=== PATIENT | female | born 1970 | race Caucasian/White ===

== ENCOUNTER 2018-10-18 06:38 | Day surgery (SDC) | payer OTHER ==
[2018-10-18 07:38] VITALS: BMI 32.8
--- NOTE | 2018-10-18 09:20 | RAD ---
Exam: Lumbar myelogram HISTORY: Lumbar fusion. Lumbar radiculopathy. Low back pain Exposure: 1.3 minutes; 1284.9 mcg/sq m FINDINGS: 2 view lumbar spine manager critical care radiograph demonstrates bilateral transpedicular screws from L2 t hrough S1. No perihardware lucency. There is discontinuity of the vertical stabilization rods at the L3-L4 level. Disc prosthesis at L2-L3, L3-L4, L4-L5 and L5-S1. Posterior bone graft material is n oted. No evidence of fracture TECHNIQUE: Consent obtained to perform a lumbar puncture for lumbar myelogram. L1-L2 level was deemed appropriate. Skin was prepped and draped in sterile fashion. 1% lidocaine, buffered with sodium bicarbonate was used for local anesthesia. Under fluoroscopic guidance, a 22-gauge spinal needle was advanced into the CSF space. Prompt flow of clear CSF to the hub of the needle. Via a short tubing catheter, a total of 10 cc of Isovue-M 200 contrast was administered intrathecally. No immediate or p ostprocedure complications IMPRESSION: Successful lumbar myelogram.
--- NOTE | 2018-10-18 09:49 | CT ---
Exam: Post myelogram lumbar spine CT HISTORY: Lumbar radiculopathy. Low back pain. COMPARISON: None FINDINGS: The bilateral transpedicular screws from L2 through S1. No perihardware lucency. Discontinu ity of the vertical stabilization johnathan at the L2-L3 level, bilaterally. Extensive posterior bone graft material. Disc prosthesis at L2-L3, L3-L4, L4-L5 and L5-S1. Paraspinal musculature has symmetric attenuation. No retroperitoneal mass, lymphadenopathy or hematom a. Visualized alimentary canal and solid organs are unremarkable Conus medullaris terminates at the mid L1 level. Lumbar spine vertebral body height is maintained. Th ere is no fracture. T12-L1: No significant central canal stenosis or neural foraminal narrowing L1-L2: No significant central canal stenosis or neural foraminal narrowing L2-L3: No significant central canal stenosis. Neural foramina are patent L3-L4: No significant central canal stenosis. Neural foramina are patent L4-L5: No significant central canal stenosis. Mild bilateral neural foraminal narrowing L5-S1: No significant central canal stenosis. Mild bilateral neural foraminal narrowing. IMPRESSION: 1. Uncomplicated lumbar fusion L2-S1. No perihardware lucency. 2. Discontinuity of the vertical fusion hardware at the L2-L3 level, bilaterally. Findings may be due to 2 separate surgeries versus fracture of the vertical stabilization rods. Correlate clinically. 3. No significant central canal stenosis or high-grade foraminal narrowing.
[2018-10-18] MEDS ORDERED: Iopamidol-M 200 41% 20 ML VIAL ONE (10:53)
== END 2018-10-18 10:00 | disposition home or self-care (01) ==
LOC: RAD 06:38
PROVIDERS: ATTEND Neurological Surgery
PROC: B01B1ZZ Fluoroscopy of Spinal Cord using Low Osmolar Contrast (ICD-10-PCS; principal; 2018-10-18)
DX: M54.16 Radiculopathy, lumbar region (principal); I10 Essential (primary) hypertension; F32.9 Major depressive disorder, single episode, unspecified; F41.9 Anxiety disorder, unspecified; Z79.899 Other long term (current) drug therapy; Z88.2 Allergy status to sulfonamides; Z88.8 Allergy status to other drugs, medicaments and biological substances; Z98.1 Arthrodesis status; W10.8XXA Fall (on) (from) other stairs and steps, initial encounter; Y99.0 Civilian activity done for income or pay
CPT/HCPCS: 62304; 72132; Q9966